=== PATIENT | male | born 1950 | race Caucasian/White ===

== ENCOUNTER 2016-09-03 01:55 | Inpatient (IN) | payer OTHER ==
[~2016-09-03] VITALS: Ht 172.7 cm; Wt 104.8 kg
[~2016-09-03 01:55] MED LIST: FERROUS SULFAT325 M3 PO; LISINOPRIL-HCT1 EAC1 PO; TOPROL XL50 M1 PO; TRAMADOL HCL50 M1 PO
--- NOTE | 2016-09-03 12:21 | Operative Report ---
Operative/Inv Procedure Report Surgery Date: 09/03/16 Name of Procedure: Right total knee arthroplasty Pre-Operative Diagnosis: Primary osteoarthritis right knee Post-Operative Diagnosis: Same Estimated Blood Loss: scant Surgeon/Ad Terminal Makeup Operator: RENNY MELO,BRIE Cruz PAC Anesthesia: block (SPINAL) IV Fluids: See anesthesia record Implants: Striker triathlon posterior stabilize knee; size 5 femur, size 5 tibia, 9 mm polyethylene insert, 31 patellar button Drains: None Specimens: Bone to pathology Tourniquet: 54 minutes Complications: None Condition: Stable Operative Indication: Patient's a 66 YO male with severe osteoarthritis the right knee. He failed conservative treatment and wished to proceed with total knee arthroplasty. The risks and benefits the procedure were discussed with the patient in the office. A skilled set hands was necessary provided by physician hearing aid assistant Macho Cruz weighted with retraction positioning and component assembly throughout the case. Operative/Procedure Note Note: Once informed consent was obtained and the correct limb was identified the patient was brought to operative room. Spinal anesthesia was induced. Patient was then placed supine on the operating table and a thigh tourniquet and Naqvi catheter was placed. The right lower shoulder is prepped and draped usual sterile fashion. To begin the procedure standard midline incision was made. Sharp dissection was carried down through the skin and subcutaneous tissue. A medial parapatellar arthrotomy was performed. Patella was everted and the fat pad is removed from the patellar tendon. Osteophytes removed from the patella and patellar cut was made removing 8 mm of bone off the patella. Patella was sized to be a size 31 patella. The jig for the 31 patella was placed on the patella and the lug holes were drilled. At this point patella was retracted laterally and the knee was placed into flexion. The medial and lateral menisci removed sharply with a #10 blade. Intramedullary canal the femur was entered with a step drill. The distal femoral cutting guide was placed and a 6 valgus cut with 10 mm of bone resection was made. Bone was passed off as specimen. Next the sizing guide was placed on distal femur and reflux sized the femur to be a size 5 femur. A size 5 4-in-1 cutting guide was placed on the distal femur and anterior, posterior, chamfer cuts were made and bone was passed off. Next the box cut guide was made for posterior stabilized knee. The box cut guide was placed on the femur and the box cut was made with oscillating saw. At this point we then turned our attention to the tibia. A pickle fork retractor placed posterior to the tibia and the cruciate ligament remnants were resected. Remnants of the menisci resected. Step drill was used to enter the tibial canal for an intramedullary cutting guide. Tibial cut was made with intramedullary cutting guide with 4 mm of bone was taken off of the medial side of the knee. The tibia was then sized to be a size 5 tibia. A trial reduction was done with a size 5 tibia, size 5 femur and a 31 patellar button. A 9 mm polyethylene spacer was placed. The knee was taken through a full range of motion. Knee had full extension and 120 of flexion. The knee was stable to varus and valgus stress at 0 and 60. A lateral release was done in order to allow the patella to track optimally. The tibial component rotation was marked and the components removed. The tibial component was then pinned in place and the keel cut was made. At this point all trial components removed and the knee was pulse lavaged. On the back table to cement was mixed. 60 mL of X Portillo was then injected around the medial capsule and lateral, capsule of the knee. Once the cement was ready cementation took place with the tibial component cemented first followed by the femoral component and the patellar button. All excess cement was removed with curettes. A 9 mm trial insert was placed into the knee and the knee was placed in full extension while cement hardened. Knee was again taken through a full range of motion found be stable. The knee was pulse lavaged. A 9 mm polyethylene insert was opened and locked into the tibial component. The tourniquet was released and any bleeding was stopped with electrocautery. The arthrotomy is closed with #1 Vicryl interrupted sutures. The subcutaneous tissues closed #1 Vicryl and 2-0 Vicryl interrupted sutures. The used to close the skin and a sterile dressing was applied. Patient was awakened taken recovery in stable condition.
[2016-09-03 14:35] VITALS: BP 122/62
--- NOTE | 2016-09-03 15:46 | PN- Orthopedic ---
Subjective Subjective: POST-OP NOTE: No complaints. Expected soreness of right knee. Tolerating clears. No nausea. Getting out of bed with PT now. No dizziness. No shortness of breath. No chest pains. His goal is to go to [employer]. Objective Vital Signs and I&Os Vital Signs Date Time Temp Pulse Resp B/P B/P Pulse O2 O2 Flow FiO2 Mean Ox Delivery Rate 09/03 1435 98.2 62 18 122/62 94 Room Air Intake & Output 09/03 1600 09/03 0809/03 0000 09/02 1600 09/02 0809/02 0000 Intake Total Output Total Balance Patient 231 lb Weight Physical Exam: General - alert & oriented x 3. comfortable. no acute distress. Lungs - clear bilaterally. no w/r/r. Cardiac - s1s2. reg. Abdomen - soft. nontender. - leong draining clear, yellow urine. Extremities - warm bilaterally. no c/c/e. calves soft and nontender b/l. right knee dressing c/d/i. no drains. no hematoma. nvi. athrombics active b/l. Current Medications: Current Medications Sig/[place]les[place] Start time Last Medication Dose Route Stop Time Status Admin Acetaminophen 0 .STK-MED ONE 09/03 0847 DC PO Acetaminophen 650 MG ONCE ONE 09/03 0845 DC PO 09/03 0846 Apixaban 2.5 MG BID 09/04 1000 AC PO Celecoxib 400 MG DAILY 09/04 1000 AC PO Celecoxib 400 MG ONCE ONE 09/04 0715 DC PO 09/03 0816 Dexamethasone 10 MG ONCE ONE 09/03 814 DC Dextrose/Water 50 ML IV 09/03 0844 Dextrose/Lactated 1,000 ML Q13H 09/03 1415 AC 09/03 Ringer's IV 1411 Docusate Sodium 100 MG DAILY NEEDED PRN 09/03 1415 AC PO Gabapentin 300 MG ONCE ONE 09/04 0715 DC PO 09/03 0816 Hydrochlorothiazide 25 MG DAILY 09/04 1000 AC PO Lisinopril 20 MG DAILY 09/04 1000 AC PO Metoprolol Succinate 50 MG DAILY 09/04 1000 AC PO Morphine Sulfate 4 MG Q3P PRN 09/03 1415 AC IV Morphine Sulfate 2 MG Q3P PRN 09/03 1415 AC IV Ondansetron HCl 4 MG Q6P PRN 09/03 1415 AC IV Oxycodone HCl 10 MG Q12 09/030 AC PO Oxycodone HCl 10 MG ONCE ONE 09/03 0830 DC PO 09/03 0831 Oxycodone/ 1 TAB Q4P PRN 09/03 1415 AC Acetaminophen PO Oxycodone/ 2 TAB Q4P PRN 09/03 1415 AC Acetaminophen PO Polyethylene Glycol 17 GM DAILY NEEDED PRN 09/03 1415 AC PO Scopolamine HBr 0 .STK-MED ONE 09/03 0848 DC TOP Scopolamine HBr 1 PAT ONCE ONE 09/03 0845 DC TOP 09/03 0846 Senna/Docusate Sodium 2 TAB AT BEDTIME NEED.. 09/03 1415 AC PO Vancomycin HCl 1,000 MG ONCE ONE 09/030 AC Sodium Chloride 250 ML IV 09/03 2259 Vancomycin HCl 1,000 MG ONCE 09/03 0000 DC Sodium Chloride 250 ML IV 09/03 2359 Assessment/Plan Assessment/Plan This 66 year old white male with hx htn, osteoarthritis, PUD and hx GI bleed, is POD#0 s/p right total knee arthroplasty for primary osteoarthritis right knee advance diet as tolerated pain control as ordered eliquis bid - dvt ppx continue PT daily d/c leong and iv fluids in am daquan-operative vanco f/u am labs dressing change POD#2 home meds ordered, including beta tete d/c planning will d/w Core Measures/Miscellaneous Venous Thromboembolism VTE Risk Factors: Age > 40, Surgery VTE Contraindications: No Contraindications VTE Diagnosis: No Beta Tete Is Beta Tete a Home Med? Yes If Yes, Was This Ordered Today? Yes Antibiotics Is Patient on Antibiotics? Yes If Yes: prophylaxis
[2016-09-03 16:03] VITALS: BP 140/80
[2016-09-03 18:00] VITALS: BP 138/82
[2016-09-03 20:06] VITALS: BP 130/64
[2016-09-04 00:09] VITALS: BP 148/76
[2016-09-04 04:16] VITALS: BP 144/70
--- NOTE | 2016-09-04 07:38 | PN- Orthopedic ---
Surgical Brief Attending Note Brief Attending Note: Patient seen this morning. He is postop day #1 status post right total knee arthroplasty. Complaining of moderate pain in the right knee. It is well- controlled with his medications. On physical exam patient's awake alert and oriented. Examination right lower extremity reveals his dressings in place. He has no calf tenderness. He is moving all of his toes. Assessment: Status post right total knee arthroplasty postoperative day #1. Plan: Patient will begin with physical therapy. Continue with anticoagulation and follow-up morning labs.
[2016-09-04 07:42] VITALS: BP 150/72
[2016-09-04 09:03] LABS: ABSOLUTE BASOPHIL COUNT 0 /CUMM (0.0-0.2); ABSOLUTE EOSINOPHIL COUNT 0 /CUMM (0.0-0.7); ABSOLUTE GRANULOCYTE CT 8.4 /CUMM (1.4-6.5); ABSOLUTE LYMPH COUNT 0.9 /CUMM (1.2-3.4); BASOPHIL % 0 % (0.0-2.0); EOSINOPHIL % 0 % (0-5); GRANULOCYTE % 81.5 % (42.2-75.2); HEMATOCRIT 32.2 % (42-52); MEAN CORPUSCULAR HGB 26.4 PG (27.0-31.0); MEAN CORPUSCULAR HGB CONC 32.7 G/DL (33.0-37.0); MEAN CORPUSCULAR VOLUME 80.8 FL (80.0-94.0); MEAN PLATELET VOLUME 7.9 FL (7.4-10.4); PLATELET COUNT 250 /CUMM (130-400); RED BLOOD CELL CT 3.98 /CUMM (4.70-6.10); WHITE BLOOD CELL COUNT 10.3 /CUMM (4.8-10.8)
--- NOTE | 2016-09-04 10:55 | Patient Discharge Instructions ---
Discharge Instructions General Discharge Information You were seen/treated for: Primary osteoarthritis right knee You had these procedures: Surgery Date: 09/03/16 Name of Procedure: Right total knee arthroplasty Watch for these problems: fever>101.3, increased pain, redness/swelling/drainage, dizziness, shortness of breath, chest pains Call Surgeon to remove: [place] No bath, but you may shower: Yes Other wound care: dry guaze dressing change daily, right knee Special Instructions: staple removal around post-op day#14 Diet Continue normal diet: Yes Recommended Diet: Regular Additional DIET Information: coumadin considerations Activity Full Activity/No Limits: No Activity Self Limited: Yes Pounds, do NOT lift more than: 10 Activity Limited to: Weight bear as tolerated Additional ACTIVITY Info: rolling walker assistance Acute Coronary Syndrome Inclusion Criteria At DC or during hospital stay patient has or had the following: ACS DIAGNOSIS No Discharge Core Measures Meds if any: Prescribed or Continued at Discharge Meds if any: NOT Prescribed or Continued at Discharge Congestive Heart Failure Inclusion Criteria At DC or during hospital stay patient has or had the following: CHF DIAGNOSIS No Discharge Core Measures Meds if any: Prescribed or Continued at Discharge Meds if any: NOT Prescribed or Continued at Discharge Cerebrovascular accident Inclusion Criteria At DC or during hospital stay patient has or had the following: CVA/TIA Diagnosis No Discharge Core Measures Meds if any: Prescribed or Continued at Discharge Meds if any: NOT Prescribed or Continued at Discharge Venous thromboembolism Inclusion Criteria VTE Diagnosis No VTE Type NONE VTE Confirmed by (Test) NONE Discharge Core Measures - Per Current guidelines, there needs to be overlap - treatment for the first 5 days of Warfarin therapy. - If discharged on Warfarin prior to 5 days of - overlap therapy, the patient will need to be - assessed for post discharge needs including - *Post discharge parental anticoagulation - *Warfarin and/or parental anticoagulation education - *Follow up date to check INR post discharge At least 5 days overlap therapy as Inpatient No Meds if any: Prescribed or Continued at Discharge Note: Overlap Therapy is Warfarin and Anticoagulant Meds if any: NOT Prescribed or Continued at Discharge
[2016-09-04] MEDS ORDERED: OXYCONTIN10 M1 PO (10:58)
[2016-09-04] MEDS ORDERED: MIRALAX119 GM PO (10:58)
[2016-09-04] MEDS ORDERED: DOCUSATE SODIU100 M3 PO (10:58)
[2016-09-04] MEDS ORDERED: ELIQUIS2.5 M1 PO (10:58)
[2016-09-04] MEDS ORDERED: PERCOCET 10-321 EACH PO (10:58)
[2016-09-04] MEDS ORDERED: RW (10:59)
--- NOTE | 2016-09-04 11:04 | Surgical Discharge Summary ---
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 Home Who Do You Live With? Family Services at Home: None What is Your Primary Language? Moroccan Review of Systems: see h&p Hospital Course Course Attending Physician: BRIE LAWSON MD Primary Care Physician: CHUY JC MD Hospital Course: Electively scheduled right total knee arthroplasty on 09/03/16 for primary osteoarthritis right knee by , which was uneventful. Started on eliquis post-operatively for dvt prophylaxis. Pain control transitioned from iv to oral medications. Evaluated and treated by PT, with recommendations for home with PT. Otherwise uneventful hospital course. Complications: None Allergies: Coded Allergies: aspirin (GI UPSET 08/22/16) Disposition Summary Disposition Principal Diagnosis: Primary osteoarthritis right knee Additional Diagnosis: same as above s/p Right total knee arthroplasty Discharge Disposition: home health services Discharge Instructions General Discharge Information Code Status: Full Code Patient's Diet: regular diet as tolerated Patient's Activity: weight bearing as tolerated. rolling walker assistance. Follow-Up Instructions/Appts: follow up with in 3-4 weeks staple removal around post-op day#14 prescriptions provided and services arrange for home pre-printed instructions provided at the time of discharge Medications at Discharge Discharge Medications: Stop taking the following medications: Tramadol HCl (Tramadol HCl) 50 MG TABLET ORAL THREE TIMES A DAY NEEDED Continue taking these medications: Lisinopril/Hydrochlorothiazide (Lisinopril-Hctz 20-25 MG Tab) 20 MG-25 MG TABLET 1 Tablet ORAL DAILY Comments: Last Taken: 09/06/16 Time: 1000 Metoprolol Succ XL (Toprol Xl) 50 MG TAB Milligram ORAL DAILY Comments: Last Taken: 09/06/16 Time: 1000 Ferrous Sulfate (Ferrous Sulfate) 325 MG (65 MG IRON) TABLET 1 Tablet ORAL DAILY Comments: NOT TAKEN IN HOSPITAL Start taking the following new medications: Apixaban (Eliquis) 2.5 MG TABLET 2.5 Milligram ORAL TWICE DAILY Qty = 60 No Refills Comments: Last Taken: 09/06/16 Time: 1000 Docusate Sodium (Docusate Sodium) 100 MG CAPSULE 100 Milligram ORAL TWICE DAILY as needed for CONSTIPATION Qty = 20 No Refills Instructions: stool softener available over the counter Comments: Last Taken: 09/06/16 Time: 1000 Oxycodone HCl (Oxycontin) 10 MG TAB.ER.12H 10 Milligram ORAL EVERY 12 HOURS as needed for pain control Qty = 6 No Refills Comments: Last Taken: 09/06/16 Time: 1000 Polyethylene Glycol 3350 (Miralax) 17 GRAM/DOSE POWDER 17 Gram ORAL DAILY NEEDED as needed for NO BM IN TWO DAYS Qty = 2 No Refills Oxycodone HCl/Acetaminophen (Percocet 10-325 MG Tablet) 10 MG-325 MG TABLET 1-2 Tablet ORAL EVERY 4-6 HOURS NEEDED as needed for pain control Qty = 36 No Refills Instructions: do not combine with tylenol Comments: Last Taken: 09/06/16 Time: 0600 Rolling Walker (Rolling Walker) UNIT Unit SEE INSTRUCTIONS Qty = 1 No Refills Instructions: Use as instructed. Copies To: BABITA MELO,CHUY Watt
[2016-09-04 14:09] VITALS: BP 120/70
[2016-09-04 22:40] VITALS: BP 122/68
[2016-09-05 06:51] VITALS: BP 146/82
--- NOTE | 2016-09-05 07:56 | PN- Orthopedic ---
Subjective Subjective: Patient complaining of as expected pain in the right knee. Medication is helping him. He has been up and ambulatory and doing well. No other complaints , no fever, no chest pain or shortness of breath Objective Vital Signs and I&Os Vital Signs Date Time Temp Pulse Resp B/P B/P Pulse O2 O2 Flow FiO2 Mean Ox Delivery Rate 09/05 0651 97.3 70 20 146/82 100 Room Air 09/04 2240 98.6 68 20 122/68 93 Room Air 09/04 1409 98.2 58 20 120/70 96 09/04 0902 65 124/68 09/04 0901 65 124/68 Intake & Output 09/05 0800 09/05 0000 09/04 1600 09/04 0800 09/04 0000 09/03 1600 Intake Total 519 089 4481 880 Output Total 6839 893 6774 700 Balance -560 170 50 180 Intake, IV 150 750 600 Intake, Oral 600 720 400 280 Number 0 Bowel Movements Output, Urine 6380 973 9061 700 Patient 231 lb Weight Physical Exam: Well-developed well-nourished no apparent distress. HEENT: Atraumatic, extraocular motion intact Neck: Supple, no lymphadenopathy Respiratory: No respiratory distress Extremities: No edema RIGHT lower extremity dressing in place, Incision line is clean dry and intact with minimal bloody drainage. No signs of infection. Moderate joint effusion Range of motion is 0-[address] ALPS in place Neurovascularly intact distally Bilateral calves are supple, nontender. Neuro: Alert and oriented x3 Psych: Mood affect normal, normal memory normal judgment. Skin: Warm and dry, no rash on exposed skin Assessment/Plan Assessment/Plan Postoperative day #2 status post right total knee arthroplasty Continue physical therapy, weightbearing as tolerated Regular diet Pain medication as needed Celebrex for pain and anti-inflammatory dressing changed today, dsd daily ALPS Eliquis for DVT prophylaxsis. Anticipate discharge to home tomorrow with VNA services Core Measures/Miscellaneous Venous Thromboembolism VTE Risk Factors: Age > 40, Surgery VTE Contraindications: No Contraindications VTE Diagnosis: No Beta Tete Is Beta Tete a Home Med? Yes If Yes, Was This Ordered Today? Yes Antibiotics Is Patient on Antibiotics? Yes If Yes: prophylaxis
--- NOTE | 2016-09-05 10:00 | RADIOLOGY REPORT ---
EXAMINATION: XR KNEE, RIGHT CLINICAL INFORMATION: Status post right total knee arthroplasty. COMPARISON: 05/18/2012 TECHNIQUE: Right knee, AP and lateral views FINDINGS: The patient is status post total knee arthroplasty. The arthroplasty components are in satisfactory position and there is normal alignment at the patellofemoral and tibiofemoral compartments. No acute periprosthetic fracture. There is postoperative soft tissue swelling and soft tissue emphysema of the anterior knee with anterior skin julisa in place. IMPRESSION: There are expected posterior surgical changes from total knee arthroplasty.
[2016-09-05 14:20] VITALS: BP 122/68
[2016-09-05 22:52] VITALS: BP 124/60
[2016-09-06 06:49] VITALS: BP 132/64
--- NOTE | 2016-09-06 07:52 | PN- Orthopedic ---
Subjective Subjective: POD #3 s/p R TKR Pt has no major complaints at this time. Pain is well controlled, 3/10. He is ambulating well with PT and tolerating a diet. He is voiding well, but is still awaiting a bowel movement. No nausea, vomiting, chest pain, shortness of breath. He expresses gratitude for the care he has received, but is looking forward to progressing to home. Objective Vital Signs and I&Os Vital Signs Date Time Temp Pulse Resp B/P B/P Pulse O2 O2 Flow FiO2 Mean Ox Delivery Rate 09/06 0649 99.2 74 16 132/64 97 Room Air 09/05 2252 98.3 63 20 124/60 92 Room Air 09/05 1420 98.6 70 20 122/68 94 09/05 0951 80 130/72 09/05 0950 80 130/72 Intake & Output 09/06 0800 09/06 0000 09/05 1600 09/05 0800 09/05 0000 09/04 1600 Intake Total 250 490 720 400 600 870 Output Total 950 1800 571 844 8795 700 Balance -700 -1310 -2 -375 -560 170 Intake, IV 10 10 0 150 Intake, Oral 240 480 720 400 600 720 Number 0 Bowel Movements Output, Urine 950 1800 692 238 4470 700 Physical Exam: Gen.: Patient is awake and alert. No acute distress. Cardiac: Regular rate and rhythm. Pulmonary: Lungs are clear to auscultation bilaterally. Good inspiratory effort is noted. There are no wheezes or crackles appreciated. Extremities: The right knee is moderately swollen as expected. The incision is intact with julisa. There is mild erythema, but no drainage. No concern for infection. Strength of dorsiflexion and plantar flexion are 5 out of 5 in the operative site. No significant calf tenderness bilaterally. Assessment/Plan Assessment/Plan Pt is a 66 yo M with a hx of pud, gi bleed and htn, who is now POD #3 s/p R TKR. Plan: -Plan for discharge to home with PT/home health services today. -Continue pain control with Percocet and Celebrex as needed. -Continue physical therapy. Weight-bear as tolerated with rolling walker. -Dressing change once daily. -Eliquis twice a day and Alps for DVT prophylaxis. -Add Dulcolax suppository to bowel regimen. -Plan for follow-up with Dr. Knapp at 2 weeks for staple removal. Core Measures/Miscellaneous Venous Thromboembolism VTE Risk Factors: Age > 40, Surgery VTE Contraindications: No Contraindications VTE Diagnosis: No Beta Tete Is Beta Tete a Home Med? Yes If Yes, Was This Ordered Today? Yes Antibiotics Is Patient on Antibiotics? No
[2016-09-06 09:15] VITALS: BP 128/72
== END 2016-09-06 11:35 | disposition home health service (06) | DRG 470 ==
LOC: SDA 01:55 → ENRESERV 12:40 → ENTRNSPT 13:39 → EDTRNSPTSTS 13:51 → EDTRNSPT 13:51 → 2NA 14:01 → CMPTRNSPT 14:22 → ENPENDDIS 09-06 08:23 → 2NA 09-06 11:35
PROVIDERS: Physician Assistant Surgical; ADMIT Orthopaedic Surgery Foot and Ankle Surgery
PROC: 0SR904A Replacement of Right Hip Joint with Ceramic on Polyethylene Synthetic Substitute, Uncemented, Open Approach (ICD-10-PCS; principal; 2016-09-03)
DX: M17.11 Unilateral primary osteoarthritis, right knee (principal); I10 Essential (primary) hypertension; I71.4 Abdominal aortic aneurysm, without rupture; Z87.11 Personal history of peptic ulcer disease; M25.751 Osteophyte, right hip
CPT/HCPCS: 2NAP; 73560-RT; 82436; 87086; 97110-GO; 97116-GO; 97161-GP; 97530-GO; C1713; C9290; J0131; J1100; J3370; J7040